=== PATIENT | male | born 1965 | race Caucasian/White ===

== ENCOUNTER 2020-06-12 14:15 | Emergency (ER) | payer MEDICAID ==
[~2020-06-12] VITALS: Ht 180.3 cm; Wt 127.3 kg
[2020-06-12 14:18] VITALS: Ht 180.3 cm; Wt 127.3 kg
[2020-06-12 14:40] LABS: BASOPHILS 0.1 % (0-2); HEMATOCRIT 47.1 % (42.0-54.0); HEMOGLOBIN 15.4 g/dL (13.5-17.5); IMMATURE GRANULOCYTES 0.3 % (0-5); LYMPHOCYTE ABS# 1.36 10x3/uL (1.32-3.57); LYMPHOCYTES 11.7 % (15-50); MCH 32.2 pg (26.0-34.0); MCHC 32.7 g/dL (31.0-37.0); MCV 98.3 fL (80.0-100.0); MEAN PLATELET VOLUME 9.6 fL (7.4-10.4); MONOCYTES 16.8 % (2-11); NEUTROPHIL ABS# 8.15 10x3/uL (1.78-5.38); NEUTROPHILS 70.1 % (40-80); PLATELET COUNT 175 10x3/uL (130-400); RBC 4.79 10x6/uL (4.20-6.10); RDW 13.7 % (11.5-14.5); WBC 11.6 10x3/uL (4.8-10.8)
[2020-06-12 14:53] LABS: BILIRUBIN NEGATIVE (NEGATIVE); KETONE NEGATIVE (NEGATIVE); NITRITE NEGATIVE (NEGATIVE); UROBILINOGEN NORMAL mg/dL (< 2)
[2020-06-12 15:03] LABS: WHITE CELLS - URINE 0-5 HPF (0-1)
[2020-06-12 15:04] LABS: BACTERIA FEW HPF (NONE SEEN); GRANULAR CAST 0-5 LPF (NONE SEEN); SQUAMOUS EPITHELIAL NONE SEEN HPF (0-4)
[2020-06-12 15:18] LABS: ANION GAP 13.4 mmol/L (8-16); CALCIUM 9.3 mg/dL (8.5-10.1); CREATININE - SERUM 1.5 mg/dL (0.6-1.3); POTASSIUM - SERUM 4.4 mmol/L (3.5-5.1)
[2020-06-12 15:22] LABS: APTT 31.8 SECONDS (22.8-39.4); INR 1.13 (0.85-1.17); PROTIME 13.5 SECONDS (11.6-15.0)
[2020-06-12 15:24] LABS: BILIRUBIN - TOTAL 2.13 mg/dL (0.2-1.3); PROTEIN - SERUM 8.3 g/dL (6.4-8.2)
[2020-06-12 15:37] LABS: AMYLASE - SERUM 44 U/L (25-115); CKMB 0.4 U/L (0.0-3.6); CREATINE KINASE 118 UL (21-232); LIPASE 96 U/L (73-393); PRO BNP 100 pg/mL (0-125)
[2020-06-12 15:39] LABS: TROPONIN-I < 0.017 ng/mL (0.000-0.060)
[2020-06-12] MEDS ORDERED: ZOFRAN ODT4 MG/UDTAB PO (17:11)
[2020-06-12] MEDS ORDERED: LEVSIN/ANASP0.125 MG PO (17:11)
[2020-06-12] MEDS ORDERED: TOPROL XL25 MG PO (17:22)
[2020-06-12 18:37] VITALS: BP 130/92
== END 2020-06-12 18:39 | disposition home or self-care (01) ==
LOC: D.ER 14:15
PROVIDERS: Family Medicine
DX: R10.9 Unspecified abdominal pain (principal); R00.0 Tachycardia, unspecified; R79.89 Other specified abnormal findings of blood chemistry; I10 Essential (primary) hypertension; K21.9 Gastro-esophageal reflux disease without esophagitis